=== PATIENT | male | born 1965 | race Two or more races ===

== ENCOUNTER 2024-01-10 02:53 | Emergency (ER) | payer MEDICAID, SELFPAY ==
[2024-01-10 02:54] VITALS: PULSE 86; RESP 16; O2SAT 97; BMI 24.2
[2024-01-10 03:08] VITALS: BP 119/78; PULSE 100; RESP 18; TEMP 37; O2SAT 98
--- NOTE | 2024-01-10 03:12 | PD.EDRME ---
Rapid Medical Screening Exam RME Arrival date/time: 01/10/24 02:53 58 year old male present to ED for c/o cp/sob for 4-5 days I have greeted and performed a focused initial assessment of this patient. A comprehensive ED assessment and evaluation of the patient, analysis of all test results, and completion of the medical decision making process will be conducted by additional ED providers. Chief Complaint: Anxiety Vital signs: Vital Signs Temperature 98.6 F 01/10/24 03:08 Pulse Rate 100 01/10/24 03:08 Respiratory Rate 18 01/10/24 03:08 Blood Pressure 119/78 01/10/24 03:08 Pulse Oximetry (%) 98 01/10/24 03:08 Oxygen Delivery Method Room Air 01/10/24 03:08
[2024-01-10 03:37] LABS: Basophils % (Auto) 1 % (0-2.5); Eosinophils # (Auto) 0.4 Thou/mm3 (0.0-0.5); Eosinophils % (Auto) 6 % (0-10); Hematocrit 29.6 % (41.0-53.0); Immature Granulocytes % (Auto) 0 % (0-0); Immature Granulocytes Auto 0.02 Thou/mm3 (0.00-0.00); Lymphocytes # (Auto) 1.8 Thou/mm3 (1.0-4.8); Lymphocytes % (Auto) 27 % (10-50); Mean Corpuscular HGB Conc 28.7 g/dl (31.0-37.0); Mean Corpuscular Hemoglobin 18.4 pg (25.0-35.0); Mean Corpuscular Volume 64 fL (80-100); Monocytes # (Auto) 0.5 Thou/mm3 (0.0-0.8); Monocytes % (Auto) 7 % (0-12); Neutrophils % (Auto) 59 % (37-80); Nucleated Red Blood Cell % 0 /100 WBC (0); Platelet Count 504 Thou/mm3 (140-440); RDW Standard Deviation 43.5 fL (35.1-43.9); Red Blood Count 4.62 Miln/mm3 (4.50-5.90); White Blood Count 6.7 Thou/mm3 (3.8-10.6)
[2024-01-10 03:38] LABS: Hemoglobin 8.5 g/dL (13.5-16.0)
[2024-01-10 03:54] LABS: Path Review Blood Smear Sent to Pathologist
[2024-01-10 03:55] LABS: Alanine Aminotransferase 16 U/L (10-49); Albumin, Serum 4.5 gm/dL (3.5-5.0); Albumin/Globulin Ratio 1.7 (1.2-2.2); Alkaline Phosphatase 92 U/L (46-116); Anion Gap 8 (7-16); Aspartate Amino Transferase 26 U/L (0-34); B-Type Natriuretic Peptide 24 pg/mL (0-100); BUN/Creatinine Ratio 14 Ratio (12-20); Bilirubin,Total 0.6 mg/dL (0.3-1.2); Blood Urea Nitrogen 17 mg/dL (9-23); Calcium 8.8 mg/dL (8.3-10.6); Calcium (Corrected) 8.8 mg/dL (8.5-10.1); Carbon Dioxide 23.1 mMol/L (20.0-31.0); Chloride 106 mMol/L (98-107); Creatine Kinase 113 U/L (34-171); Creatinine (Component) 1.2 mg/dL (0.6-1.3); Estimated Creatinine Clearance 59.8 mL/min (>60); Globulin 2.7 gm/dL (2.3-3.5); Glucose 123 mg/dL (74-106); Lipase 110 U/L (12-53); Osmolality,Calculated 276 (275-295); Potassium 4.1 mMol/L (3.4-5.1); Sodium 137 mMol/L (136-145); Total Protein 7.2 gm/dL (5.7-8.2); Troponin I < 0.002 ng/mL (0.0-0.045); eGFR > 60 See Note
--- NOTE | 2024-01-10 04:41 | EDNOTE_ITS ---
ED Anxiety RME/HPI General Chief Complaint: Anxiety Stated Complaint: ANXIETY Time Seen by Provider: 01/10/24 04:41 Arrival date/time: 01/10/24 02:53 58 year old male present to emergency room via EMS with c/o anxiety and intermittent chest and lower leg pain for 5 days. LOCATION: leg and chest SEVERITY: Symptoms are described as being severe with limitations on activities of daily living CONTEXT: The patient is unable to identify any inciting events. DURATION/TIMING: The symptoms started approximately 5 days ASSOCIATED SYMPTOMS: The patient is unable to identify any other associated symptoms. MODIFYING FACTORS: The patient is unable to identify any alleviating or aggravating symptoms. PERTINENT ROS: no fevers, no cough, no pleuritic pain, no ripping or tearing sensations, denies any lower extremity edema and no unilateral swelling, no shortness of breath no nausea,vomiting, diarrhea, no dizziness/headache no rash no loc/syncope episode no abd/back pain no dsyuria,urgency,frequency, NO RECTAL BLEEDING REVIEW OF SYSTEMS: See History of Present Illness - with the exception of those mentioned in the history of present illness, all other systems reviewed and reported as negative GENERAL: In general the patient is awake, interactive, in an emergency department gurney. HEAD/EYES/EARS/NOSE/THROAT: normo-cephalic, atraumatic, mucus membranes are moist, anicteric, palpebral conjunctiva is pink, trachea is midline. CARDIOVASCULAR: regular rate and regular rhythm, no murmurs, heart sounds are not distant, strong pulses in all four extremities that are equal and symmetric bilateral upper and lower extremities, normal capillary refill. CHEST/PULMONARY: normal chest rise and fall, good air movement, clear to auscultation bilaterally, normal inspiratory to expiratory ratios without evidence of respiratory distress. NECK: No midline/Paraspinal tenderness, no step off ROM/Strenght intact No Kernig and bruzinski sign. No trauma ABDOMEN: soft, not tender, no masses appreciated BACK: normal range of motion without pain. NEUROLOGICAL: cranio-facial features are symmetric, EXTREMITY: + paraplegia no joint swelling, no joint erythema, no signs of trauma, no unilateral leg swelling and no peripheral edema. SKIN: warm, dry, well-perfused, no jaundice, no rash, no telangiectasias or petechia. PSYCH: calm, cooperative, no evidence of psychosis or agitation RME / HPI RME / HPI narrative: 01/10/24 02:53 58 year old male present to ED for c/o cp/sob for 4-5 days I have greeted and performed a focused initial assessment of this patient. A comprehensive ED assessment and evaluation of the patient, analysis of all test results, and completion of the medical decision making process will be conducted by additional ED providers. Related Data Allergies Allergy/AdvReac Type Severity Reaction Status Date / Time Penicillins Allergy Severe Hives Verified 01/10/24 02:57 Course Course Course Narrative: plan labs, ekg, ativan/ibu This patient presents with symptoms consistent with acute anxiety reaction / panic attack. Low suspicion for acute cardiopulmonary process including ACS, PE, or thoracic aortic dissection. Denies any ingestions or any other medical complaints. No evidence of alcohol withdrawal symptoms. Presentation not consistent with overt toxidrome, ingestion given history & physical. Presentation not consistent with organic or medical emergency at this time. No acute indication for psychiatric consultation (without SI/HI, AH/VH). Cautious return precautions discussed with full understanding. Plan: basic labs, EKG follow up PRN Quality Measures none Orders Category Date Time Status EKG (ED ONLY) *Do not use* NOW Care 01/10/24 03:11 Completed EKG (ED Only) Stat Exams 01/10/24 03:11 Ordered BNP [B-Type Natriuretic Peptide] Stat Lab 01/10/24 03:22 Completed CBC Stat Lab 01/10/24 03:22 Completed CK [Creatine Kinase] Stat Lab 01/10/24 03:22 Completed CMP [Comprehensive Metabolic Panel] Stat Lab 01/10/24 03:22 Completed Lipase Stat Lab 01/10/24 03:22 Completed Path Review Blood Smear Stat Lab 01/10/24 03:22 Completed Troponin I Stat Lab 01/10/24 03:22 Completed Ibuprofen Tab [Motrin Tab] Med 01/10/24 04:41 Once 600 mg PO X1 ONE LORazepam [Ativan] Med 01/10/24 04:41 Once 1 mg PO X1 ONE Vital Signs Vital signs: Vital Signs Temperature 98.6 F 01/10/24 03:08 Pulse Rate 100 01/10/24 03:08 Respiratory Rate 18 01/10/24 03:08 Blood Pressure 119/78 01/10/24 03:08 Pulse Oximetry (%) 98 01/10/24 03:08 Oxygen Delivery Method Room Air 01/10/24 03:08 Procedures -ED EKG Interpretation #1: Date of EK01/10/24 Rate: 90 Interpretation: Reviewed by me EKG Impression: Normal sinus rhythm, No acute ST-T changes, No ectopy and No ischemic changes Anxiety Patient data External records reviewed:: [facility] previous records Clinical information provided by:: patient Social determinants that could affect healthcare access:: alcohol use Patient has the following chronic illnesses:: ANEMIA, PARAPLEGIA, ALCOHOLIC CIRRHOSIS , ANXIETY How is presenting disease/condition affected by chronic disease/condition?: exacerbated by Evaluation data The following diagnostics were reviewed and interpreted by me:: lab results, radiology exam(s) and EKG tracing(s) Lab and/or radiology exams considered but not ordered:: NONE Interpretation Summary: CBC: + ANEMIA CONSISTED FROM PREVIOUS LABS CMP NO ACUTE FINDINGS TROP NEGATIVE LIPASE 110 Medications / Prescriptions Medications or Prescriptions considered but not ordered:: NONE Medication administrations:: Medication Administration History Ibuprofen (Ibuprofen Tab 600 Mg Tablet) 600 mg PO X1 ONE Stop: 01/10/24 04:42 Lorazepam (Lorazepam 0.5 Mg Tablet) 1 mg PO X1 ONE Stop: 01/10/24 04:42 Consultations Consultation(s) initiated? (list below): No Diagnosis Differential diagnosis anxiety: hyperventilation, panic disorder, acute anxiety and other (DEHYDRATION, ANEMIA, LA/NSTEMI ) Most likely diagnosis given after review of the tests above:: ANXIETY, ANEMIA Admission Indicated Admission indicated?: not indicated Admission Request Was there a request for admission?: No Disposition Plan Disposition Plan: Discharge Discharge Attestation Discharge Attestation: The patient and all family members were given an opportunity to ask questions and understood the discharge instructions. Discharge instructions specifically effects, indications for sooner follow up or return to the emergency department, and the expected course of current diagnosis. Patient condition: Stable Discharge Plan Plan Patient Disposition: HOME (Self Care) Health Concerns: Follow with PMD as directed Return to ED if sx worsen Problem List Clinical Impression: Acute anxiety, Anemia Patient/Caregiver Discharge Instructions Education Materials: ED Anxiety Reaction Print Language: Nigerien Stand Alone Forms: Maisha Award Info., Patient Portal Info Letter
[2024-01-10] MEDS: IBUPROFEN TAB 600 MG TABLET PO (05:03)
[2024-01-10] MEDS: LORazepam 0.5 MG TABLET 1 MG PO (05:03)
[2024-01-10 06:24] VITALS: BP 119/82; PULSE 92; RESP 20; TEMP 36.9; O2SAT 98
== END 2024-01-10 08:04 | disposition home or self-care (01) ==
LOC: SERX 06:07
PROVIDERS: Physician Assistant; Emergency Provider Emergency Medicine; PCP Emergency Medicine
DX: F41.9 Anxiety disorder, unspecified (principal); D64.9 Anemia, unspecified; R94.31 Abnormal electrocardiogram [ECG] [EKG]
CPT/HCPCS: 36415; 80053; 82550; 83690; 83880; 84484; 85025; 93005; 99283; A9270

== ENCOUNTER 2024-02-01 09:18 | Emergency (ER) | payer MEDICAID, SELFPAY ==
[2024-02-01 09:27] VITALS: BP 138/76; PULSE 98; RESP 18; TEMP 36.7; O2SAT 99; BMI 24.2
--- NOTE | 2024-02-01 09:37 | XR_ITS ---
Examination: CT abdomen and pelvis without contrast. Coronal 3-D reconstructions. Sagittal 2-D reconstructions. Date and time of exam:February 01, 2024 0953 hours INDICATIONS: Onset generalized abdominal pain with urinary retention today CTDI: vol (mGy): 6.37 DLP: (mGycm): 117 Technique: Axial images of the abdomen have been obtained, 3 mm slice thickness Intravenous contrast material has not been administered. Low dose protocols were performed. One or more of the following dose reduction techniques were used; automated exposure control, adjustment of the mA and/or KV according to patient size, use of iterative reconstruction technique. Findings: 4 cm bleb in the right middle lobe Atelectasis in the right lower lobe Retrocardiac gastric hernia No focal liver or splenic lesions Cholelithiasis No pancreatic or adrenal mass Moderate right hydronephrosis which appears to relate to stricture Ureterovesical junction No renal or ureteral calculi Bladder intact No prostatomegaly IMPRESSION: Unchanged mild to moderate right hydronephrosis which appears to relate to distal ureteral structure
[2024-02-01 10:18] LABS: Basophils # (Auto) 0.1 Thou/mm3 (0.0-0.2); Basophils % (Auto) 1 % (0-2.5); Eosinophils # (Auto) 0.3 Thou/mm3 (0.0-0.5); Eosinophils % (Auto) 5 % (0-10); Hematocrit 28.4 % (41.0-53.0); Immature Granulocytes % (Auto) 0 % (0-0); Immature Granulocytes Auto 0.02 Thou/mm3 (0.00-0.00); Lymphocytes # (Auto) 1.9 Thou/mm3 (1.0-4.8); Lymphocytes % (Auto) 31 % (10-50); Mean Corpuscular HGB Conc 27.1 g/dl (31.0-37.0); Mean Corpuscular Volume 63 fL (80-100); Monocytes # (Auto) 0.5 Thou/mm3 (0.0-0.8); Monocytes % (Auto) 9 % (0-12); Neutrophils # (Auto) 3.3 Thou/mm3 (1.8-7.7); Neutrophils % (Auto) 54 % (37-80); Nucleated Red Blood Cell % 0 /100 WBC (0); Platelet Count 447 Thou/mm3 (140-440); RDW Standard Deviation 42.2 fL (35.1-43.9); Red Blood Count 4.54 Miln/mm3 (4.50-5.90); White Blood Count 6.1 Thou/mm3 (3.8-10.6)
[2024-02-01 10:27] LABS: Hemoglobin 7.7 g/dL (13.5-16.0)
[2024-02-01 10:36] LABS: Alanine Aminotransferase 10 U/L (10-49); Albumin, Serum 4.6 gm/dL (3.5-5.0); Albumin/Globulin Ratio 1.8 (1.2-2.2); Alkaline Phosphatase 89 U/L (46-116); Anion Gap 8 (7-16); Aspartate Amino Transferase 25 U/L (0-34); BUN/Creatinine Ratio 10 Ratio (12-20); Bilirubin,Total 0.7 mg/dL (0.3-1.2); Blood Urea Nitrogen 12 mg/dL (9-23); Calcium 8.7 mg/dL (8.3-10.6); Calcium (Corrected) 8.7 mg/dL (8.5-10.1); Carbon Dioxide 22.8 mMol/L (20.0-31.0); Chloride 105 mMol/L (98-107); Creatinine (Component) 1.2 mg/dL (0.6-1.3); Estimated Creatinine Clearance 59.8 mL/min (>60); Globulin 2.5 gm/dL (2.3-3.5); Glucose 229 mg/dL (74-106); Lipase 62 U/L (12-53); Osmolality,Calculated 278 (275-295); Sodium 136 mMol/L (136-145); Total Protein 7.1 gm/dL (5.7-8.2); eGFR > 60 See Note
[2024-02-01 11:12] LABS: Collection Type, Urine Clean Catch; Squamous Epithelial Cell,Urine 0 /hpf (0-5)
[2024-02-01 11:15] LABS: Bilirubin,Urine Negative (Negative); Blood,Urine Negative (Negative); Clarity,Urine Clear (Clear/Hazy); Color,Urine Lt-Yellow (Lt Yel-Yel); Glucose, Urine Trace (Negative); Ketones,Urine Negative (Negative); Leukocyte Esterase,Urine Positive (Negative); Nitrite,Urine Negative (Negative); Protein,Urine Negative (Neg - Trace); RBC,Urine 4 /hpf (0-3); Urobilinogen,Urine Negative mg/dL (0.0-1.0); WBC,Urine 48 /hpf (0-5)
[2024-02-01 11:21] LABS: Culture Indicated,Urine Yes
--- NOTE | 2024-02-01 11:30 | PD.EDADULT ---
ED General RME/HPI General Chief complaint: Urogenital-Male Stated complaint: URINARY RETENTION, LOWER ABD/BACK PAIN Time Seen by Provider: 02/01/24 09:30 Arrival date/time: 02/01/24 09:18 RME / HPI RME / HPI narrative: DR. LEMON MAIN ED EVALUATION: 58 y/o male with past medical history of DM II, HTN, kidney disease, UTI's paraplegia s/p fall, and urinary retention presents in the ED from home on 02/01/24 with complaint of urinary retention x 4 days. He endorses lower mid-abdominal pain. Patient states that as a kid he often had difficulty with urination and often has UTI's. He endorses urinary frequency and urgency. Denies any sexual intercourse or sexual contacts. Denies any recent sick contacts or recent travel. He states that he has diffuse lower back pain from trying to transfer himself on his walker to a wheelchair at 6am today. He states that he fell but did not hit his head. He landed on his left side. Patient will have a suprapubic catheter inserted on February 09, [address] Rosas. Patient denies headache, fever, chills, chest pain, palpitation, shortness of breath, dizziness, nausea, vomiting, diarrhea, or constipation. Allergies: Penicillin- hives, medications: [place], pantoprazole, gabapentin. Surgical history: Lumbar and neck surgery social history: Daily Vaping for the past 2 years, Nicotine vaping (22,000 puffs monthly. 2.5-pack-year smoking history. 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 Daily beer drinker (2 beers-24 oz on average daily) x 2 months. complaint: urinary retention Onset (ago): day(s) Location: abdomen Radiation: back Severity scale (1-10): 9 Quality: stabbing and sharp Consistency: constant Relieving factors: none Exacerbating factors: movement Treatments prior to arrival: none Related Data Allergies Allergy/AdvReac Type Severity Reaction Status Date / Time Penicillins Allergy Severe Hives Verified 01/10/24 02:57 Review of Systems Review of Systems Systems Reviewed: All systems reviewed, normal except as documented Past Medical History Past Medical History CARDIAC: Positive Hypertension GENITOURINARY: Positive Renal Disease ENDOCRINE: Positive Diabetes Mellitus Type 2 Surgical History OTHER SURGICAL HX: As in the history of present illness Social History SMOKING STATUS: Former smoker (2.5 pack year history) ALCOHOL: Current (1-3- 24 oz beers every day for 2 months) ED Exam Narrative Physical exam: Constitutional: well-developed, well-nourished, in no acute distress, lying in bed. HEENT: NCAT, EOMI, reactive round pupils b/l, patent nares b/l, dry mucous membranes, on room air Lung: Diminished breath sounds all lung lobes b/l, no wheezing, no rhonchi, no crackles. Heart: Regular S1S2, no murmurs, gallops, or rubs Abdomen: Soft, non-distended, tender lower quadrant b/l, ++bowel sounds. Extremities: No cyanosis, clubbing, no edema of b/l legs, 2+ dorsalis pedis pulses present b/l. ROM intact upper and lower extremities. : Suprapubic tenderness christine catheter in place. Neurologic: No focal sensory or motor deficits noted, AOx3, appropriate affect Skin: Warm, dry, no lesions or rashes noted Course Quality Measures none Orders Category Date Time Status Christine [Urinary Catheter] NOW Care 02/01/24 09:40 Completed Christine to Leg Bag Routine Care 02/01/24 14:[address] abdomen pelvis wo con Stat Exams 02/01/24 09:37 Completed CBC Stat Lab 02/01/24 10:08 Completed Comprehensive Metabolic Panel Stat Lab 02/01/24 10:08 Completed Drug Screen,Urine Stat Lab 02/01/24 11:04 Completed Lipase Stat Lab 02/01/24 10:08 Completed UA, C/S IF [Urinalysis, C/S if Indicated] Stat Lab 02/01/24 11:04 Completed Urine Culture Stat Lab 02/01/24 11:04 Received HYDROcodone/APAP 10/325 [[place] 10/325] Med 02/01/24 11:37 Discontinued 1 tab PO X1 ONE Sodium Chloride 0.9% 1000 ml [Ns] 1,000 ml Med 02/01/24 12:14 Discontinued IV 999 mls/hr Vital Signs Vital signs: Vital Signs Temperature 98.1 F 02/01/24 09:27 Pulse Rate 98 02/01/24 09:27 Respiratory Rate 18 02/01/24 09:27 Blood Pressure 138/76 H 02/01/24 09:27 Pulse Oximetry (%) 99 02/01/24 09:27 Oxygen Delivery Method Room Air 02/01/24 09:27 [facility] Patient data External records reviewed:: None Clinical information provided by:: patient Social determinants that could affect healthcare access:: none Patient has the following chronic illnesses:: history of DM II, HTN, kidney disease, paraplegia s/p fall, and urinary retention How is presenting disease/condition affected by chronic disease/condition?: exacerbated by Evaluation data The following diagnostics were reviewed and interpreted by me:: lab results and radiology exam(s) Lab and/or radiology exams considered but not ordered:: None Interpretation Summary: CT a/p shows 4 cm bleb in the right middle lobe, atelectasis in the right lower lobe, Retrocardiac gastric hernia, cholelithiasis, moderate right hydronephrosis which appears to relate to stricture at ureterovesical junction, no renal or ureteral calculi, Bladder intact, no prostatomegaly Hemoglobin 7.7, thrombocytosis with platelets 447. Medications Medications considered but not ordered:: None Medication administrations:: Medication Administration History Discontinued Medications Hydrocodone Bitart/Acetaminophen (Hydrocodone/Apap 10/325 Tab) 1 tab PO X1 ONE Stop: 02/01/24 11:38 Last Admin: 02/01/24 12:27 Dose: 1 tab Documented By: WILLY Sodium Chloride (Ns) 1,000 mls @ 999 mls/hr IV .Q1H1M ONE Stop: 02/01/24 13:14 Last Infusion: 02/01/24 14:23 Dose: Infused Documented By: Admin: 02/01/24 12:28 Dose: 999 mls/hr Documented By: WILLY [place] Consultations Consultation(s) initiated? (list below): No Diagnosis Differential Diagnosis ED Complaint MDM: UTI Most likely diagnosis given after review of the tests above:: hydronephrosis 2/2 stricture Admission Indicated Admission indicated?: not indicated Explain why admission is indicated or not indicated:: Not indicated as patient does not have any signs of active infection- denies fever/chills, dizziness, weakness, nausea or vomiting. He can be discharged. Advised patient to follow up outpatient for stricture repair. Admission Request Was there a request for admission?: No Disposition Plan Disposition Plan: Discharge Discharge Attestation Discharge Attestation: The patient and all family members were given an opportunity to ask questions and understood the discharge instructions. Discharge instructions specifically effects, indications for sooner follow up or return to the emergency department, and the expected course of current diagnosis. Patient condition: Stable Medical Decision Making MDM Narrative MDM Narrative: 58 y/o male with past medical history of DM II, HTN, kidney disease, paraplegia s/p fall, UTI's, and urinary retention presents in the ED from home on 02/01/24 with complaint of urinary retention x 4 days. He endorses lower mid-abdominal pain. He endorses urinary frequency and urgency. Denies any sexual intercourse or sexual contacts. Denies any recent sick contacts or recent travel. He states that he has diffuse lower back pain from trying to transfer himself on his walker to a wheelchair at 6am today. Patient needs to follow up with his urologist Dr. Rosas. Recommend to discharge with christine catheter, Recommend follow up for repeat imaging of bladder to ensure less than 300 cc in bladder. Must follow-up with urologist to identify possible malignant ureteral stricture vs prostatic hypertrophy possible but unlikely as none identified on CT abdomen pelvis. Urologist needed for any possible underlying bladder dysfunction identification.Patient does not have any white blood cell count elevation. However, noted hemoglobin of 7.7 though patient is asymptomatic with anemia. Patient will likely further improve upon insertion of suprapubic catheter or continuous Christine catheter use. Today 1000cc removed when christine catheter was inserted. Recommend to discharge with leg bag catheter. Patient understands to follow up with PCP and urologist in 5-7 days. l Differential Diagnosis Differential Diagnosis: UTI Medical Records Medical records reviewed: Yes I reviewed the patient's medical records. Lab Data Lab results reviewed: Yes I reviewed the patient's lab results. 02/01/24 10:08 02/01/24 10:08 Labs: Lab Results 02/01/24 02/01/24 Range/Units 10:08 11:04 WBC 6.1 (3.8-10.6) Thou/mm3 RBC 4.54 (4.50-5.90) Miln/mm3 Hgb 7.7 L (13.5-16.0) g/dL Hct 28.4 L (41.0-53.0) % MCV 63 L (80-100) fL MCH 17.0 L (25.0-35.0) pg MCHC 27.1 L (31.0-37.0) g/dl RDW Std Deviation 42.2 (35.1-43.9) fL Plt Count 447 H D (140-440) Thou/mm3 Neut % (Auto) 54 (37-80) % Lymph % (Auto) 31 (10-50) % [place] % (Auto) 9 (0-12) % Eos % (Auto) 5 (0-10) % Baso % (Auto) 1 (0-2.5) % Neut # (Auto) 3.3 (1.8-7.7) Thou/mm3 Lymph # (Auto) 1.9 (1.0-4.8) Thou/mm3 [place] # (Auto) 0.5 (0.0-0.8) Thou/mm3 Eos # (Auto) 0.3 (0.0-0.5) Thou/mm3 Baso # (Auto) 0.1 (0.0-0.2) Thou/mm3 Immature Gran # (Auto) 0.02 H (0.00-0.00) Thou/mm3 Absolute Nucleated RBC 0.00 (0.00-0.00) Thou/mm3 Immature Gran % 0 (0-0) % Nucleated RBC % 0 (0) /100 WBC Sodium 136 (136-145) mMol/L Potassium 4.0 (3.4-5.1) mMol/L Chloride 105 (98-107) mMol/L Carbon Dioxide 22.8 (20.0-31.0) mMol/L Anion Gap 8 (7-16) BUN 12 (9-23) mg/dL Creatinine 1.2 (0.6-1.3) mg/dL Estim Creat Clear Calc 59.8 L (>60) mL/min eGFR > 60 (60 - ) See Note BUN/Creatinine Ratio 10 L (12-20) Ratio Glucose 229 H (74-106) mg/dL Calculated Osmolality 278 (275-295) Calcium 8.7 (8.3-10.6) mg/dL Corrected Calcium 8.7 (8.5-10.1) mg/dL Total Bilirubin 0.7 (0.3-1.2) mg/dL AST 25 (0-34) U/L ALT 10 (10-49) U/L Alkaline Phosphatase 89 (46-116) U/L Total Protein 7.1 (5.7-8.2) gm/dL Albumin 4.6 (3.5-5.0) gm/dL Globulin 2.5 (2.3-3.5) gm/dL Albumin/Globulin Ratio 1.8 (1.2-2.2) Lipase 62 H (12-53) U/L Ur Collection Type Clean Catch Urine Color Lt-Yellow (Lt Yel-Yel) Urine Clarity Clear (Clear/Hazy) Urine pH 6.0 (5.0-7.0) Ur Specific [place] 1.010 (1.001-1.035) Urine Protein Negative (Neg - Trace) Urine Glucose (UA) Trace (Negative) Urine Ketones Negative (Negative) Urine Blood Negative (Negative) Urine Nitrite Negative (Negative) Urine Bilirubin Negative (Negative) Urine Urobilinogen (Auto) Negative (0.0-1.0) mg/dL Ur Leukocyte Esterase Positive (Negative) Urine RBC 4 H (0-3) /hpf Urine WBC 48 H (0-5) /hpf Ur Squamous Epith Cells 0 (0-5) /hpf Urine Bacteria None (None) Ur Culture Indicated? Yes Urine Opiates Screen Negative (Negative) Urine Fentanyl Screen Negative (Negative) Ur Barbiturates Screen Negative (Negative) U Amphetamin/Meth Scrn Negative (Negative) U Benzodiazepines Scrn Negative (Negative) U Cocaine Metab Screen Negative (Negative) U Marijuana (THC) Screen Negative (Negative) Radiology Data Radiology results reviewed: Yes I reviewed the patient's radiology results. Discharge Plan Plan Patient Disposition: HOME (Self Care) Health Concerns: Follow up with PCP and urologist in 5-7days. Recommend leg bag catheter to continue to drain urine. If symptoms worsen, return to the ED. Prescriptions/Referrals Referrals: Liban Moore MD [Primary Care Provider] - In 1 week Problem List Clinical Impression: Hydronephrosis concurrent with and due to ureteral stricture, Acute retention of urine, Chronic anemia, Pyuria Patient/Caregiver Discharge Instructions Print Language: Citizen Of [place] Stand Alone Forms: Maisha Award Info., Patient Portal Info Letter Attestation Attestation I, Americo Morin MD, have reviewed the history, exam, and assessment of the patient. I have evaluated the patient independently and agree with the plan of care documented by [ ]. All diagnostic studies were reviewed and discussed. I confirm the diagnosis as documented by the Resident. I was present during the Medical Decision Making for this patient. The patient's plan of care was created between myself and the Resident and consistent with our discussion of the patient's case. Patient has obvious acute urinary retention has a urethral stricture and is followed by urologist in [place]. Today Christine was placed at over 1000 cc urine came out. He was much more comfortable. He is got no fever he is got some chronic pyuria I see no reason to treat this at this time also has a chronic anemia. There is no active bleeding there is no other acute problem identified. Patient is to follow-up with his urologist as discussed above and was explained by me and knows return if getting worse.
[2024-02-01 11:34] LABS: Amphetamine/Methamp Scrn,U Negative (Negative); Barbiturate Screen,Urine Negative (Negative); Benzodiazepines Screen,Urine Negative (Negative); Benzoylecgonine Screen, Ur Negative (Negative); Fentanyl Screen,Urine Negative (Negative); Opiate Screen,Urine Negative (Negative); THC Screen,Urine Negative (Negative)
[2024-02-01] MEDS: HYDROcodone/APAP 10/325 TAB PO (12:27)
[2024-02-01] MEDS: SODIUM CHLORIDE 0.9% 1000 ML 1,000 ML 999 ML IV (12:28)
[2024-02-01 14:16] VITALS: BP 120/70; PULSE 80; RESP 18; TEMP 37.4; O2SAT 98
--- NOTE | 2024-02-01 14:35 | PC.NURSE ---
placed christine to leg bag, per provider order, instructions on how to empty and adjust leg bag provided with verbal understanding.
== END 2024-02-01 14:57 | disposition home or self-care (01) ==
PROVIDERS: Nurse Practitioner Primary Care; Emergency Provider Emergency Medicine; PCP Emergency Medicine
DX: N13.1 Hydronephrosis with ureteral stricture, not elsewhere classified (principal); D64.9 Anemia, unspecified; R82.81 Pyuria
CPT/HCPCS: 51702; 36415; 74176; 80053; 80307; 81001; 83690; 85025; 87086; 99284; J7030; A9270

== ENCOUNTER 2024-02-14 01:03 | Emergency (ER) | payer MEDICAID, SELFPAY ==
--- NOTE | 2024-02-14 01:13 | PD.EDNV ---
Nausea/Vomit./Diarrhea-RME/HPI General Chief complaint: Nausea/Vomiting/Diarrhea Stated complaint: N/V Time Seen by Provider: 02/14/24 01:13 Arrival date/time: 02/14/24 01:03 RME / HPI RME / HPI Narrative: Dr. Higgins?s Main ED Evaluation: 58yo male with a history of cirrhosis BIBA from home presents to the ED for a chief complaint of nausea and vomiting x 3 days. Patient reports having small amounts of blood in his emesis. He reports associated abdominal pain. He denies any diarrhea, fever, chills or any other associated symptoms. He states he drank 1 beer today. Related Data Allergies Allergy/AdvReac Type Severity Reaction Status Date / Time Penicillins Allergy Severe Hives Verified 01/10/24 02:57 Review of Systems Review of Systems Systems Reviewed: All systems reviewed, normal except as documented Past Medical History Past Medical History NEUROLOGIC: Positive Seizures (per pt during a liver biopsy), Paralysis (limited lower extremities) and Spinal Cord Injury (fall) CARDIAC: Positive Hypertension; Negative Cardiac Disorders or Congestive Heart Failure RESPIRATORY: Negative Chronic Obstructive Pulmonary Disease (COPD) or Asthma GASTROINTESTINAL: Positive Cirrhosis (alcohol) and Gastrointestinal Bleed GENITOURINARY: Positive Renal Disease MUSCULOSKELETAL: Positive Scoliosis and Fibromyalgia ENDOCRINE: Positive Diabetes Mellitus Type 2; Negative Diabetes Mellitus Type 1 HEMATOLOGIC: Positive Anemia; Negative Sickle Cell Disease OTHER HISTORY: Positive Hospitalization, Falls, Blood Transfusions and Anesthesia Reactions (hard time waking up.); Negative Blood Transfusion Reaction Family History FAMILY HISTORY: Positive Family Cardiac Disorders (mother/father HTN) Social History SMOKING STATUS: Former smoker (2.5 pack year history) SECOND HAND EXPOSURE: No 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 HEENT: Normocephalic, atraumatic; pupils equal, round, reactive to light; EOMI; mucous membranes pink, moist; oropharynx clear NECK: Supple LUNGS: CTABL; no wheezes, no rales, no rhonchi HEART: Regular rate, regular rhythm; normal S1, S2; no murmurs ABDOMEN: non distended; normal BS; soft, no tenderness, no guarding, no rebound; no masses, no organomegaly, no hernia BACK: no CVA tenderness EXTREMITIES: atraumatic; paraplegic; no edema NEUROLOGIC: awake; alert and oriented x4; cranial nerves II-XII grossly intact; no focal sensory or motor deficits PSYCHIATRIC: appropriate mood and affect SKIN: warm, dry, normal color; no rashes Course Quality Measures none Orders Category Date Time Status Bedside COVID-19 Antigen Test NOW Care 02/14/24 01:21 Completed Bedside Influenza A&B Antigen Test NOW Care 02/14/24 01:22 Completed Calculus Teacher STAT Care 02/14/24 01:19 Completed EKG (ED ONLY) *Do not use* NOW Care 02/14/24 01:19 Completed In and Out Catheter X1 Care 02/14/24 01:19 Completed Insert IV STAT Care 02/14/24 01:20 Completed EKG (ED Only) Stat Exams 02/14/24 01:19 Draft Alcohol, Blood Medical Stat Lab 02/14/24 01:30 Completed CBC Stat Lab 02/14/24 01:30 Completed Comprehensive Metabolic Panel Stat Lab 02/14/24 01:30 Completed Drug Screen,Urine Stat Lab 02/14/24 01:21 Completed INR [Prothrombin Time with INR] Stat Lab 02/14/24 01:30 Completed Ketone [Beta Hydroxybutyrate] Stat Lab 02/14/24 01:30 Completed Lipase Stat Lab 02/14/24 01:30 Completed Magnesium Stat Lab 02/14/24 01:30 Completed PTT [Partial Thromboplastin Time] Stat Lab 02/14/24 01:30 Completed Urinalysis Stat Lab 02/14/24 01:20 Completed VBG [Venous Blood Gas] Stat Lab 02/14/24 01:30 Completed Famotidine Inj [Pepcid Inj] Med 02/14/24 01:21 Discontinued 20 mg IVP X1 ONE Ondansetron Inj [Zofran Inj] Med 02/14/24 01:30 Discontinued 4 mg .ROUTE .STK-MED ONE Ondansetron Inj [Zofran Inj] Med 02/14/24 01:21 Discontinued 4 mg IV X1 ONE Pantoprazole/Ns 80Mg IV Premix [Protonix/NS 80mg IV Med 02/14/24 01:40 Discontinued Premix] 80 mg in 100 ml IV X1 Pantoprazole/Ns 80Mg IV Premix [Protonix/NS 80mg IV Med 02/14/24 01:40 Discontinued Premix] 80 mg in 100 ml IV X1 Sodium Chloride 0.9% 1000 ml [Ns] 1,000 ml Med 02/14/24 01:19 Discontinued IV 999 mls/hr Sodium Chloride 0.9% 1000 ml [Ns] 1,000 ml Med 02/14/24 04:06 Discontinued IV 999 mls/hr cefTRIAXone/D5w 1gm IV premix [Rocephin/D5w 1gm IV Med 02/14/24 01:42 Discontinued premix] 50 ml IV X1 Vital Signs Vital signs: Vital Signs Temperature 97.0 F 02/14/24 01:20 Pulse Rate 93 02/14/24 01:20 Respiratory Rate 17 02/14/24 01:20 Blood Pressure 139/83 H 02/14/24 01:20 Pulse Oximetry (%) 98 02/14/24 01:20 Oxygen Delivery Method Room Air 02/14/24 01:20 Nausea/Vomiting/Diarrhea MDM Narrative MDM Narrative:: Scribe Attestation: 02/14/24 - Veronica Boyle am scribing for and in the presence of Dr. Higgins. Patient data External records reviewed:: [facility] previous records (Per chart review, patient was seen here on 02/01/24 for urinary retention.) Clinical information provided by:: patient Social determinants that could affect healthcare access:: alcohol use Patient has the following chronic illnesses:: DM II, HTN, kidney disease, paraplegia s/p fall, urinary retention How is presenting disease/condition affected by chronic disease/condition?: caused by Evaluation data The following diagnostics were reviewed and interpreted by me:: lab results and EKG tracing(s) Lab and/or radiology exams considered but not ordered:: none Interpretation Summary: HnH is 7.7/28.3, Platelets are normal, Carbon Dioxide is slightly low at 18.8, Lipase is slightly elevated at 77, UA is positive for a UTI, UDS is negative, Blood alcohol is 162.7, Bedside COVID and Influenza are negative, according to my interpretation. EKG done at 0140, NSR, rate of 88, left axis deviation, no ectopy, Q waves in lead III and avF, no STEMI, according to my interpretation. Medications / Prescriptions Medications / Prescriptions considered but not ordered:: none Medication administrations:: Medication Administration History Discontinued Medications Famotidine (Famotidine Inj 10 Mg/Ml Vial 2 Ml) 20 mg IVP X1 ONE Stop: 02/14/24 01:22 Last Admin: 02/14/24 01:30 Dose: 20 mg Documented By: CVL Sodium Chloride (Ns) 1,000 mls @ 999 mls/hr IV .Q1H1M ONE Stop: 02/14/24 02:19 Last Infusion: 02/14/24 02:41 Dose: Infused Documented By: Admin: 02/14/24 01:28 Dose: 999 mls/hr Documented By: CVL Pantoprazole Sodium (Protonix/Ns 80mg Iv Premix) 80 mg in 100 mls @ 400 mls/hr IV X1 ONE Stop: 02/14/24 01:54 Last Infusion: 02/14/24 02:30 Dose: Infused Documented By: Admin: 02/14/24 01:56 Dose: 400 mls/hr Documented By: CATRACHITA Pantoprazole Sodium (Protonix/Ns 80mg Iv Premix) 80 mg in 100 mls @ 10 mls/hr IV X1 ONE Stop: 02/14/24 11:39 Last Infusion: 02/14/24 06:10 Dose: Infused Documented By: Admin: 02/14/24 01:57 Dose: 10 mls/hr Documented By: CATRACHITA Ceftriaxone Sodium/Dextrose (Rocephin/D5w 1gm Iv Premix) 50 mls @ 100 mls/hr IV X1 ONE Stop: 02/14/24 02:11 Last Infusion: 02/14/24 02:30 Dose: Infused Documented By: Admin: 02/14/24 01:58 Dose: 100 mls/hr Documented By: CATRACHITA Sodium Chloride (Ns) 1,000 mls @ 999 mls/hr IV .Q1H1M ONE Stop: 02/14/24 05:06 Last Infusion: 02/14/24 06:07 Dose: Infused Documented By: Admin: 02/14/24 04:30 Dose: 999 mls/hr Documented By: AVELINA Ondansetron HCl (Ondansetron Inj 2 Mg/Ml Inj 2 Ml) 4 mg IV X1 ONE; Protocol Stop: 02/14/24 01:22 Last Admin: 02/14/24 01:35 Dose: 4 mg Documented By: CVL Ondansetron HCl (Ondansetron Inj 2 Mg/Ml Inj 2 Ml) Confirm Administered Dose 4 mg .ROUTE .STK-MED ONE Stop: 02/14/24 01:31 Last Admin: 02/14/24 01:50 Dose: Not Given Documented By: CVL Non-Admin Reason: Duplicate Medication on eMAR see above Consultations Consultation(s) initiated? (list below): No Diagnosis Nausea Differential Diagnosis: dehydration and other (alcohol intoxication, electrolyte abnormality, COVID, Influenza, viral syndrome) Most likely diagnosis given after review of the tests above:: see below Admission Indicated Admission indicated?: not indicated Admission Request Was there a request for admission?: No Disposition Plan Disposition Plan: Discharge Discharge Attestation Discharge Attestation: The patient and all family members were given an opportunity to ask questions and understood the discharge instructions. Discharge instructions specifically effects, indications for sooner follow up or return to the emergency department, and the expected course of current diagnosis. Patient condition: Stable Discharge Plan Plan Patient Disposition: HOME (Self Care) Disposition Comment: Stable for discharge Patient condition on transfer: Stable Prescriptions/Referrals Referrals: No Primary/Family,Physician [Primary Care Provider] - In 1 week Problem List Clinical Impression: Alcoholic cirrhosis of liver, Alcohol intoxication Patient/Caregiver Discharge Instructions Discharge Activity: activity as tolerated Education Materials: Understanding Cirrhosis, ED Cirrhosis, ED Alcohol Intoxication Additional Instructions: You should stop drinking alcohol. You already have alcoholic cirrhosis, which is chronic liver disease because of your drinking. If you continue drinking your going to make the cirrhosis worse and this could very well lead to your . You should return to the emergency department if you notice any worsening or if you are not getting better within the next couple of days Otherwise you should follow-up with your primary care doctor within the next several days Print Language: Ukrainian Stand Alone Forms: Maisha Award Info., Patient Portal Info Letter
--- NOTE | 2024-02-14 01:19 | EKG_ITS ---
[facility] Test Date: 2024-02-14 Pat Name: YOHANA CALIXTO Department: Room: - Gender: Male Swimmer: : 1965 Requested By: Todd Pfeiffer Order Number: [id number] Reading MD: Todd Pfeiffer Measurements Intervals [place] Rate: 88 P: 72 IA: 134 QRS: -17 QRSD: 83 T: -16 QT: 336 QTc: 408 Interpretive Statements SINUS RHYTHM INFERIOR MYOCARDIAL INFARCTION , OF INDETERMINATE AGE [40+ ms Q WAVE AND/OR ST/T ABNORMALITY IN II/aVF] Compared to ECG 11/18/2023 18:31:58 Myocardial infarct finding now present /store/S0/[id number]/ecg/[id number].pdf
[2024-02-14 01:20] VITALS: BP 139/83; PULSE 93; RESP 17; TEMP 36.1; O2SAT 98
[2024-02-14 01:21] VITALS: PULSE 93
[2024-02-14] MEDS: SODIUM CHLORIDE 0.9% 1000 ML 1,000 ML 999 ML IV ×2 (01:28→04:30)
[2024-02-14] MEDS: FAMOTIDINE INJ 10 MG/ML VIAL 2 ML 20 MG IVP (01:30)
[2024-02-14] MEDS: ONDANSETRON INJ 2 MG/ML INJ 2 ML 4 MG IV (01:35)
[2024-02-14 01:37] LABS: Base Excess, Venous -5 (-3-3); Basophils # (Auto) 0.1 Thou/mm3 (0.0-0.2); Basophils % (Auto) 1 % (0-2.5); Eosinophils # (Auto) 0.2 Thou/mm3 (0.0-0.5); Eosinophils % (Auto) 4 % (0-10); Hematocrit 28.3 % (41.0-53.0); Immature Granulocytes % (Auto) 1 % (0-0); Immature Granulocytes Auto 0.06 Thou/mm3 (0.00-0.00); Lymphocytes # (Auto) 1.9 Thou/mm3 (1.0-4.8); Lymphocytes % (Auto) 33 % (10-50); Mean Corpuscular HGB Conc 27.2 g/dl (31.0-37.0); Mean Corpuscular Hemoglobin 16.8 pg (25.0-35.0); Mean Corpuscular Volume 62 fL (80-100); Monocytes # (Auto) 0.6 Thou/mm3 (0.0-0.8); Monocytes % (Auto) 11 % (0-12); Neutrophils # (Auto) 2.9 Thou/mm3 (1.8-7.7); Neutrophils % (Auto) 51 % (37-80); Nucleated Red Blood Cell % 0 /100 WBC (0); O2 Saturation, Venous 74 % (96-97); PCO2, Venous 41 mmHg (36-56); PO2, Venous 48 mmHg (15-58); Platelet Count 407 Thou/mm3 (140-440); RDW Standard Deviation 42.8 fL (35.1-43.9); Red Blood Count 4.58 Miln/mm3 (4.50-5.90); White Blood Count 5.8 Thou/mm3 (3.8-10.6); pH, Venous 7.31 (7.33-7.66)
[2024-02-14 01:45] LABS: Bacteria,Urine 1+; Bilirubin,Urine Negative (Negative); Blood,Urine Trace (Negative); Budding Yeast,Urine Present; Clarity,Urine Clear (Clear/Hazy); Collection Type, Urine Catheter; Color,Urine Colorless (Lt Yel-Yel); Glucose, Urine Negative (Negative); Ketones,Urine Negative (Negative); Leukocyte Esterase,Urine Positive (Negative); Nitrite,Urine Positive (Negative); PH,Urine 6.5 (5.0-7.0); Protein,Urine Trace (Neg - Trace); RBC,Urine 2 /hpf (0-3); Specific Gravity,Urine 1.004 (1.001-1.035); Squamous Epithelial Cell,Urine 0 /hpf (0-5); Urobilinogen,Urine Negative mg/dL (0.0-1.0); WBC,Urine 38 /hpf (0-5)
[2024-02-14] MEDS: PANTOPRAZOLE/NS 80MG IV PREMIX 80 MG/100 ML BAG 400 MG IV (01:56)
[2024-02-14] MEDS: PANTOPRAZOLE/NS 80MG IV PREMIX 80 MG/100 ML BAG 10 MG IV (01:57)
[2024-02-14] MEDS: cefTRIAXone/D5w 1gm IV premix 50 ML IV (01:58)
[2024-02-14 02:02] LABS: Hemoglobin 7.7 g/dL (13.5-16.0)
[2024-02-14 02:07] LABS: Prothrombin Time 10.8 Seconds (9.0-12.2)
[2024-02-14 02:08] LABS: Partial Thromboplastin Time 25.1 Seconds (22.0-36.0)
[2024-02-14 02:15] LABS: Beta Hydroxybutyrate 0.1 mmol/L (<0.6)
[2024-02-14 02:25] LABS: Alanine Aminotransferase 23 U/L (10-49); Albumin, Serum 4.3 gm/dL (3.5-5.0); Albumin/Globulin Ratio 1.7 (1.2-2.2); Alcohol, Blood Medical 162.7 mg/dL (0-10.0); Alkaline Phosphatase 89 U/L (46-116); Anion Gap 13 (7-16); Aspartate Amino Transferase 35 U/L (0-34); BUN/Creatinine Ratio 8 Ratio (12-20); Bilirubin,Total 0.3 mg/dL (0.3-1.2); Blood Urea Nitrogen 11 mg/dL (9-23); Calcium 9.3 mg/dL (8.3-10.6); Calcium (Corrected) 9.3 mg/dL (8.5-10.1); Carbon Dioxide 18.8 mMol/L (20.0-31.0); Chloride 106 mMol/L (98-107); Creatinine (Component) 1.3 mg/dL (0.6-1.3); Globulin 2.5 gm/dL (2.3-3.5); Glucose 189 mg/dL (74-106); Lipase 77 U/L (12-53); Magnesium 2.1 mg/dL (1.6-2.6); Osmolality,Calculated 280 (275-295); Potassium 3.5 mMol/L (3.4-5.1); Sodium 138 mMol/L (136-145); Total Protein 6.8 gm/dL (5.7-8.2); eGFR > 60 See Note
[2024-02-14 02:29] LABS: Amphetamine/Methamp Scrn,U Negative (Negative); Barbiturate Screen,Urine Negative (Negative); Benzodiazepines Screen,Urine Negative (Negative); Benzoylecgonine Screen, Ur Negative (Negative); Fentanyl Screen,Urine Negative (Negative); Opiate Screen,Urine Negative (Negative); THC Screen,Urine Negative (Negative)
[2024-02-14 04:29] VITALS: BP 101/57; PULSE 95; RESP 15; O2SAT 97
[2024-02-14 05:00] VITALS: BP 120/68; PULSE 100; RESP 17; O2SAT 93
[2024-02-14 06:01] VITALS: BP 120/68; PULSE 95; RESP 16; TEMP 36.4; O2SAT 95
== END 2024-02-14 06:36 | disposition home or self-care (01) ==
PROVIDERS: Emergency Provider Emergency Medicine
DX: K70.30 Alcoholic cirrhosis of liver without ascites (principal); F10.929 Alcohol use, unspecified with intoxication, unspecified; R94.31 Abnormal electrocardiogram [ECG] [EKG]; Y90.6 Blood alcohol level of 120-199 mg/100 ml; I10 Essential (primary) hypertension; Z87.891 Personal history of nicotine dependence
CPT/HCPCS: 36415; 80053; 80307; 80320; 81001; 82010; 82803; 83690; 83735; 85025; 85610; 85730; 87400; 87811; 93005; 96365; 96366; 96368; 96375; 99284; J0696; J2405; J3490; J7030; G0480

== ENCOUNTER 2024-03-12 10:04 | Emergency (ER) | payer MEDICAID, SELFPAY ==
[2024-03-12 10:53] VITALS: PULSE 96; RESP 20; O2SAT 96
--- NOTE | 2024-03-12 13:32 | PD.EDMALE ---
ED Male Genitalurinary RME/HPI General Chief complaint: Abdominal Pain Stated complaint: ABD PAIN Time Seen by Provider: 03/12/24 10:14 Arrival date/time: 03/12/24 10:04 RME / HPI RME / HPI Narrative: This section includes all my notes and documentations, including HPI, PE, and ED course. Adonay Chung MD HPI: 59-year-old male here to be evaluated with urinary retention. Believes his urinary catheter is clogged. No urine output since last night. Reports increasing suprapubic discomfort. No other complaints. ROS: All negative except as documented in HPI. Physical Exam: General: Alert and oriented. No acute distress when remaining still. Eyes: Conjunctivae and lids clear. ENT: No nasal congestion. Neck: Supple. Heart: RRR. Lungs: No respiratory distress. Good air movement. No rhonchi, wheezing, rales. Abdomen: Soft and nontender. Normal bowel sounds. No distension. No rebound or guarding. Back: No CVA tenderness. Skin: Warm and dry. Neuro: Alert and oriented X 3. I ordered reinsertion of Chavis catheter with urine analysis. When I called the patient to check on the patient, I was told the patient eloped. Adonay Chung MD Related Data Allergies Allergy/AdvReac Type Severity Reaction Status Date / Time Penicillins Allergy Severe Hives Verified 01/10/24 02:57 Course Quality Measures none Orders Category Date Time Status Chavis to Leg Bag Routine Care 03/12/24 10:15 Ordered UA, C/S IF [Urinalysis, C/S if Indicated] Stat Lab 03/12/24 10:14 Ordered Urogenital - Male Patient data External records reviewed:: [facility] previous records Clinical information provided by:: patient and EMS Social determinants that could affect healthcare access:: alcohol use Patient has the following chronic illnesses:: Alcoholic cirrhosis How is presenting disease/condition affected by chronic disease/condition?: uneffected by Evaluation data The following diagnostics were reviewed and interpreted by me:: other (specify) (Patient eloped before diagnostic tests) Lab and/or radiology exams considered but not ordered:: None Interpretation Summary: Patient eloped Medications / Prescriptions Medications or Prescriptions considered but not ordered:: None Medication administrations:: None Consultations Consultation(s) initiated? (list below): No Diagnosis Urogenital Male Differential Diagnosis: urinary tract infection and acute retention of urine Most likely diagnosis given after review of the tests above:: Patient eloped Admission Indicated Admission indicated?: not indicated Explain why admission is indicated or not indicated:: Patient eloped Admission Request Was there a request for admission?: No Disposition Plan Disposition Plan: other (specify) (Patient eloped) Discharge Plan Plan Patient Disposition: HOME (Self Care) Problem List Clinical Impression: Urinary retention Patient/Caregiver Discharge Instructions Print Language: New Zealander Stand Alone Forms: Maisha Award Info., Patient Portal Info Letter
--- NOTE | 2024-03-12 15:09 | PC.NURSE ---
attempted to call pt, pt not found in or outside of ED. pt eloped.
== END 2024-03-12 15:09 | disposition left against medical advice (07) ==
LOC: SERX 15:34
PROVIDERS: Emergency Provider Emergency Medicine
DX: R33.9 Retention of urine, unspecified (principal); Z53.29 Procedure and treatment not carried out because of patient's decision for other reasons
CPT/HCPCS: 81001; 99281

== ENCOUNTER 2024-04-09 00:12 | Emergency (ER) | payer MEDICAID, SELFPAY ==
[2024-04-09 00:14] VITALS: BP 116/67; PULSE 96; RESP 18; TEMP 36.7; O2SAT 98; BMI 26.1
[2024-04-09 00:22] VITALS: PULSE 100; RESP 20; O2SAT 100
--- NOTE | 2024-04-09 00:55 | EDNOTE_ITS ---
ED Male Genitalurinary RME/HPI General Chief complaint: Flu Like Symptoms Stated complaint: BROKEN RDZ CATHETER Time Seen by Provider: 04/09/24 00:49 Source: patient and EMS Arrival date/time: 04/09/24 00:12 Mode of arrival: EMS Limitations: no limitations RME / HPI RME / HPI Narrative: DR ALVAREZ MAIN ED EVALUATION: 59-year-old male, brought in by ambulance from home, for evaluation of a malfunctioning urinary catheter. He reports that the catheter is not draining properly, but he denies gross hematuria, fever, chills, dysuria, or signs of a urinary tract infection. Additionally, he has a history of chronic back pain, which he states is baseline and unchanged from his usual level of discomfort. He denies any recent trauma, new neurological deficits, or worsening pain. Related Data Allergies Allergy/AdvReac Type Severity Reaction Status Date / Time Penicillins Allergy Severe Hives Verified 04/09/24 00:20 Review of Systems Review of Systems Systems Reviewed: All systems reviewed, normal except as documented Past Medical History Past Medical History NEUROLOGIC: Positive Seizures, Paralysis and Spinal Cord Injury CARDIAC: Positive Hypertension; Negative Cardiac Disorders or Congestive Heart Failure RESPIRATORY: Negative Chronic Obstructive Pulmonary Disease (COPD) or Asthma GASTROINTESTINAL: Positive Cirrhosis and Gastrointestinal Bleed GENITOURINARY: Positive Renal Disease MUSCULOSKELETAL: Positive Scoliosis and Fibromyalgia ENDOCRINE: Positive Diabetes Mellitus Type 2; Negative Diabetes Mellitus Type 1 HEMATOLOGIC: Positive Anemia; Negative Sickle Cell Disease OTHER HISTORY: Positive Hospitalization, Falls, Blood Transfusions and Anesthesia Reactions; Negative Blood Transfusion Reaction Family History FAMILY HISTORY: Positive Family Cardiac Disorders Social History SMOKING STATUS: Former smoker SECOND HAND EXPOSURE: No 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 HEENT: Normocephalic, atraumatic; pupils equal, round, reactive to light; EOMI; mucous membranes pink, moist; oropharynx clear NECK: Supple LUNGS: CTABL; no wheezes, no rales, no rhonchi HEART: Regular rate, regular rhythm; normal S1, S2; no murmurs ABDOMEN: non distended; normal BS; soft, no tenderness, no guarding, no rebound; no masses, no organomegaly, no hernia BACK: no CVA tenderness EXTREMITIES: atraumatic; no edema NEUROLOGIC: awake; alert and oriented x4; cranial nerves II-XII grossly intact; no focal sensory or motor deficits PSYCHIATRIC: appropriate mood and affect SKIN: warm, dry, normal color; no rashes General Limitations: Present no limitations Course Quality Measures none Orders Category Date Time Status Bedside COVID-19 Antigen Test NOW Care 04/09/24 00:43 Completed Bedside Influenza A&B Antigen Test NOW Care 04/09/24 00:44 Completed Rdz [Urinary Catheter] QS Care 04/09/24 00:43 Completed IV [Insert IV] NOW Care 04/09/24 00:43 Completed Vital Signs Vital signs: Vital Signs Temperature 98.1 F 04/09/24 00:14 Pulse Rate 96 04/09/24 00:14 Respiratory Rate 18 04/09/24 00:14 Blood Pressure 116/67 04/09/24 00:14 Pulse Oximetry (%) 98 04/09/24 00:14 Oxygen Delivery Method Room Air 04/09/24 00:14 Procedures -ED Procedure Comment 16 [place] urinary catheter was successfully inserted and secured with a 10 mL balloon. The procedure was performed under sterile technique, and the catheter was placed without difficulty or complications. The patient tolerated the procedure well, with no immediate signs of discomfort, trauma, or bleeding. Adequate urine output was observed post-placement. Urogenital - Male MDM Narrative MDM Narrative:: Scribe Attestation: ICharli am scribing for and in the presence of Dr. Alvarez. Provider Notation: Although this document has been carefully reviewed, there may still be some phonetic and other typographical errors. These errors are purely grammatical due to imperfections in the software program and should not be construed in any way to compromise the substance of the patient's medical care during this visit. Patient data External records reviewed:: [facility] previous records Clinical information provided by:: patient Social determinants that could affect healthcare access:: none Patient has the following chronic illnesses:: see PMH How is presenting disease/condition affected by chronic disease/condition?: uneffected by Evaluation data The following diagnostics were reviewed and interpreted by me:: lab results Lab and/or radiology exams considered but not ordered:: na Interpretation Summary: na Medications / Prescriptions Medications or Prescriptions considered but not ordered:: na Medication administrations:: na Consultations Consultation(s) initiated? (list below): No Diagnosis Urogenital Male Differential Diagnosis: urinary tract infection, prostatitis and acute retention of urine Most likely diagnosis given after review of the tests above:: Complication of Rdz catheter Admission Indicated Admission indicated?: not indicated Admission Request Was there a request for admission?: No Disposition Plan Disposition Plan: Discharge Discharge Attestation Discharge Attestation: The patient and all family members were given an opportunity to ask questions and understood the discharge instructions. Discharge instructions specifically effects, indications for sooner follow up or return to the emergency department, and the expected course of current diagnosis. Patient condition: Stable Discharge Plan Plan Patient Disposition: HOME (Self Care) Prescriptions/Referrals Referrals: No Primary/Family,Physician [Primary Care Provider] - In 1 week Problem List Clinical Impression: Complication of Rdz catheter Patient/Caregiver Discharge Instructions Education Materials: ED Rdz Catheter, Care Print Language: [place] Islander Stand Alone Forms: Maisha Award Info., Patient Portal Info Letter
[2024-04-09 01:04] VITALS: BP 139/73; PULSE 94; RESP 17; TEMP 36.7; O2SAT 99
== END 2024-04-09 01:31 | disposition home or self-care (01) ==
PROVIDERS: Emergency Provider Emergency Medicine
DX: T83.091A Other mechanical complication of indwelling urethral catheter, initial encounter (principal); Y84.6 Urinary catheterization as the cause of abnormal reaction of the patient, or of later complication, without mention of misadventure at the time of the procedure
CPT/HCPCS: 51702; 87400; 87811; 99283

== ENCOUNTER 2024-04-26 16:05 | Emergency (ER) | payer MEDICAID, SELFPAY ==
--- NOTE | 2024-04-26 17:10 | PC.NURSE ---
EMS BROUGHT PT TO LOBBY, THIS RN DID NOT SEE PT AT ALL. PER EMS PT LEFT RIGHT AWAY. PT ELOPED PRIOR TO TRIAGE
== END 2024-04-26 18:37 | disposition left against medical advice (07) ==
LOC: SERX 17:58
PROVIDERS: Emergency Provider Emergency Medicine
DX: Z53.21 Procedure and treatment not carried out due to patient leaving prior to being seen by health care provider (principal)